=== PATIENT | female | born 1970 | race Caucasian/White ===

== ENCOUNTER → 2017-08-23 | Outpatient (CLI) | payer MEDICAID | LOC: FIMAGING 12:39 | DX: Z12.31 Encounter for screening mammogram for malignant neoplasm of breast (principal) ==

== ENCOUNTER 2018-02-15 14:55 | Emergency (ER) | payer MEDICAID ==
--- NOTE | 2018-02-15 16:01 | EDPHY ---
H & P Stated Complaint: left hip pain for one week Time Seen by Provider: 02/15/18 15:57 - Medical/Surgical History Hx Asthma: No Hx Chronic Respiratory Disease: No Hx Diabetes: No Hx Cardiac Disease: No Hx Renal Disease: No Hx Cirrhosis: No Hx Alcoholism: No Hx HIV/AIDS: No Hx Splenectomy or Spleen Trauma: No Other PMH: HX.SEIZUREs (but not on medication for same). anxiety/PTSD - Social History Smoking Status: Never smoked Constitutional: Initial Vital Signs Temperature (C) 36.6 C 02/15/18 15:01 Heart Rate 78 02/15/18 15:01 Respiratory Rate 18 02/15/18 15:01 Blood Pressure 93/69 L 02/15/18 15:01 O2 Sat (%) 99 02/15/18 15:01 O2 Delivery Mode Room Air Allergies/Adverse Reactions: No Known Allergies Allergy (Verified 02/15/18 15:00) Home Medications: Medication Instructions Recorded Sertraline HCl [Zoloft 50mg (*)] 50 mg PO DAILY #14 tab 06/01/14 hydrOXYzine HCL [Vistaril 50MG 25 mg PO Q6 PRN #14 tab 06/01/14 (RX)] risperiDONE [Risperdal] 4 mg PO HS #14 tab 06/01/14 Cephalexin [Keflex (*)] 500 mg PO TID #21 cap 11/15/14 Ketoconazole 2% [Nizoral 2% Cream 1 laxmi TP BID 10 Days crtube 11/15/14 (*)] Ibuprofen [Motrin] 800 mg PO Q8 #20 tab 02/15/18 Medical Decision Making - Diagnostics Imaging Results: Imaging Impressions Hip X-Ray 02/15/18 16:09 Impression: Nothing acute identified. Imaging: I viewed and interpreted images myself ED Course/Re-evaluation: CHIEF COMPLAINT: Left hip pain HISTORY OF PRESENT ILLNESS: The patient is a 47 y/o female with a history of seizures and anxiety complaining of left hip pain, onset 1 week ago. She woke up one week ago with the left hip pain. She denies falling or any recent trauma. Due to this pain, she has had difficulty walking today. She denies chest pain, shortness of breath , abdominal pain, urinary or bowel complaints, numbness, fever. REVIEW OF SYSTEMS: A 10 point review of systems was performed and is negative with the exception of the elements mentioned in the history of present illness. PHYSICAL EXAM: HR, BP, O2 Sat, RR. Temp noted General Appearance: Alert, well hydrated, appropriate, and non-toxic appearing. Head: Atraumatic without scalp tenderness or obvious injury Eyes: Pupils equal, round, reactive to light and accommodation, EOMI, no trauma , no injection. Ears: Clear bilaterally, no perforation, normal landmarks Nose: Atraumatic, no rhinorrhea, clear. Throat: There is no erythema or exudates, no lesions, normal tonsils, mucus membranes moist. Neck: Supple, 2+ carotid upstroke, nontender, no lymphadenopathy. Respiratory: No retractions, no distress, no wheezes, and no accessory muscle use. Lungs are clear to auscultation bilaterally. Cardiovascular: Regular rate and rhythm, no murmurs, rubs, or gallops. Bilateral carotid, radial, dorsalis pedis, and posterior tibial pulses intact. Good capillary refill all extremities. Gastrointestinal: Abdomen is soft, nontender, non-distended, no masses, no rebound, no guarding, no peritoneal signs. Musculoskeletal: Tenderness over the left greater trochanter. Normal active ROM of all extremities, atraumatic. Neurological: Alert, appropriate, and interactive. The patient has normal DTRs and non-focal cranial nerves, motor, sensory, and cerebellar exam. Skin: No rashes, good turgor, no nodules on palpation. Past medical history: Anxiety, PTSD, seizures Past surgical history: Denies Family history: Denies Social history: Lives in [place], single, not employed DIAGNOSTICS/PROCEDURES/CRITICAL CARE TIME: Left hip x-ray: No acute findings DIFFERENTIAL DIAGNOSIS: The differential diagnosis for the patient's hip injury included but was not limited to trochanteric bursitis, fracture, ligamentous injury, contusion, muscular strain. MEDICAL DECISION MAKING: The patient is a 47 y/o female with a history of seizures and anxiety complaining of left hip pain, onset 1 week ago. On exam she has tenderness over the left greater trochanter; this is consistent with a trochanteric bursitis. Left hip x-ray ordered. 1644: I reviewed patient's hip x-ray which reveals no acute findings. She most likely has left hip bursitis. 1649: Reassessed patient and discussed imaging findings. I have advised her to follow up with an orthopedic surgeon. I have prescribed her a take home pack of Vicodin as well as a prescription for Motrin. Return precautions provided; patient is comfortable with this plan. - Data Points Medications Given: Discontinued Medications Hydrocodone Bitart/Acetaminophen (Alexis 5/325mg Prepack#6) 1 btl TAKEHOME EDNOW ONE Stop: 02/15/18 16:37 Last Admin: 02/15/18 16:43 Dose: 1 btl Departure - Departure Disposition: Home, Routine, Self-Care Clinical Impression: Trochanteric bursitis of left hip Condition: Good Instructions: Hydrocodone/Acetaminophen (By mouth), Hip Bursitis (ED), Hip Pain (ED) Additional Instructions: 1. Take Vicodin as prescribed for severe pain. 2. Rest, ice, elevation. 3. Follow up with an orthopedic surgeon within one week. 4. Return to the emergency department for worsening pain, swelling, numbness, weakness or other concerns. 5. You will likely need an MRI to further evaluate your injury. 6. Use Motrin in addition to prescribed pain medication as directed for pain. Referrals: Rodney Egan MD [Medical Doctor] - As per Instructions Prescriptions: Ibuprofen [Motrin] 800 mg PO Q8 #20 tab Report Scribed for: Ortiz Alexandra Report Scribed by: Lara Macias Date of Report: 02/15/18 Time of Report: 16:07
[2018-02-15] MEDS ORDERED: HYDROCOD/APAP 5/325 PREPACK#6 BTL TAKEHOME ONE (16:36)
[2018-02-15 16:45] VITALS: BP 106/82
== END 2018-02-15 16:45 | disposition home or self-care (01) ==
DX: M70.62 Trochanteric bursitis, left hip (principal); F41.9 Anxiety disorder, unspecified; Z86.69 Personal history of other diseases of the nervous system and sense organs